=== PATIENT | female | born 2005 | race Hispanic/Latino ===

== ENCOUNTER 2024-01-22 22:29 | Emergency (ER) | payer OTHER ==
[~2024-01-22] VITALS: Ht 157.5 cm; Wt 76.2 kg
[2024-01-23] MEDS: FAMOTIDINE 20 MG/2 ML VIAL IV STA (00:17)
[2024-01-23] MEDS: SODIUM CHLORIDE 0.9% 500ML 500 ML IV STA (00:18)
[2024-01-23] MEDS: DIPHENHYDRAMINE HCL INJ 50 MG/ML VIAL IV ONE (00:19)
[2024-01-23] MEDS: METHYLPREDNISOLONE SOD SUCC 125 MG/2ML VIAL IV ONE (00:19)
[2024-01-23 00:45] VITALS: PULSE 67; RESP 18; TEMP 98.3; O2SAT 100
== END 2024-01-23 00:45 | disposition home or self-care (01) ==
LOC: FSED 22:56
DX: L25.9 Unspecified contact dermatitis, unspecified cause (principal); W57.XXXA Bitten or stung by nonvenomous insect and other nonvenomous arthropods, initial encounter; Y92.89 Other specified places as the place of occurrence of the external cause
CPT/HCPCS: 81025; 99284; J1200; J2919; J7040